=== PATIENT | female | born 2005 | race Two or more races ===

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

== ENCOUNTER 2024-09-24 01:44 | Emergency (ER) | payer MEDICAID ==
[~2024-09-24] VITALS: Ht 160 cm; Wt 54.8 kg
[2024-09-24 02:35] LABS: Vaginal Bacteria Moderate; Vaginal Clue Cells Few
[2024-09-24 02:36] LABS: Vaginal Epithelial Cells Moderate
[2024-09-24 02:37] LABS: Vaginal Trichomonas Not Present
[2024-09-24] MEDS ORDERED: DOCU-94 PO (02:39)
--- NOTE | 2024-09-24 02:40 | ED.PDOC ---
NUCLEAR MEDICINE CHIEF TECHNOLOGIST HPI Comments This patient is an otherwise healthy 27-year-old female who arrives to the ED today with complaints of vaginal discomfort with possible discharge as well as some rectal bleeding for the past few days. Patient states that the vaginal discomfort concerns started a few days ago and has been consistent. Patient states she has had some discharge that has not been malodorous. Patient states the rectal bleeding event has occurred twice and was noted when she was wiping. Patient denies any fever nausea or vomiting. Patient denies any history of hemorrhoids for vaginal concerns. Vital signs were stable on arrival. Chief Complaint: Vaginal Discharge Time Seen by MD: 01:55 Reviewed Notes: Nurses Notes Allergies: Coded Allergies: No Known Drug Allergy (Verified Allergy, Unknown, 11/28/19) Home Meds Active Scripts Docusate Sodium (Colace) 100 Mg Cap, 1 CAP PO BIDP PRN, #30 CAP Prov:GALINA STEPHEN PAC 09/24/24 Information Source: Patient Mode of Arrival: Ambulatory Timing: Days Severity: Moderate Vaginal Discharge: White Onset Of Mass/Bleeding: Spontaneous Sexual Activity: Sexually Active Past Medical History PAST MEDICAL HISTORY: Denies Surgical History: Denies all surgeries VICE PRESIDENT PRECISION MARKET INSIGHTS History: No Pertinent VICE PRESIDENT PRECISION MARKET INSIGHTS History Family History Family History: Reviewed,noncontributory to illness Social History Smoker: Cigarettes Alcohol: Denies ETOH Use Drugs: Unknown Lives In: Home Constitutional: denies: chills, diaphoresis, fatigue, fever, malaise, sweats, weakness, others EENTM: denies: blurred vision, double vision, ear bleeding, ear discharge, ear drainage, ear pain, ear ringing, eye pain, eye redness, hearing loss, mouth pain, mouth swelling, nasal discharge, nose bleeding, nose congestion, nose pain, photophobia, tearing, throat pain, throat swelling, voice changes, others Respiratory: denies: cough, hemoptysis, orthopnea, SOB at rest, shortness of breath, SOB with excertion, stridor, wheezing, others Cardiovascular: denies: chest pain, dizzy spells, diaphoresis, Dyspnea on exertion, edema, irregular heart beat, left arm pain, lightheadedness, palpitations, PND, syncope, others Gastrointestinal: reports: rectal bleeding; denies: abdomen distended, abdominal pain, blood streaked bowels, constipated, diarrhea, dysphagia, difficulty swallowing, hematemesis, melena, nausea, poor appetite, poor fluid intake, rectal pain, vomiting, others Genitourinary: reports: vagina discharge; denies: abnormal vagina bleeding, burning, dyspareunia, dysuria, flank pain, frequency, hematuria, incontinence, pain, , urgency, others Neurological: denies: dizziness, fainting, headache, left sided numbness, left sided weakness, numbness, paresthesia, pre-existing deficit, right sided numbness, right sided weakness, seizure, speech problems, tingling, tremors, weakness, others Musculoskeletal: denies: back pain, gout, joint pain, joint swelling, muscle pain, muscle stiffness, neck pain, others Allergic/Immunocompromised: denies: Difficulty Healing, Frequent Infections, Hives, Itching, others Hematologic/Lymphatic: denies: anemia, blood clots, easy bleeding, easy bruising, swollen glands, others Endocrine: denies: excessive hunger, excessive sweating, excessive thirst, excessive urination, flushing, intolerance to cold, intolerance to heat, unexplained weight gain, unexplained weight loss, others Psychiatric: denies: anxiety, bipolar disorder, depression, hopeless, panic disorder, schizophrenia, sleepless, suicidal, others Physical Exam General Appearance: Mild Distress (Mild distress due to some vaginal discomfort.), Normal HEENT: Normal ENT Inspection, Pharynx Normal, TMs Normal Neck: Full Range of Motion, Non-Tender, Normal, Normal Inspection Respiratory: Chest Non-Tender, Lungs Clear, No Accessory Muscle Use, No Respiratory Distress, Normal Breath Sounds Cardiovascular: No Edema, No JVD, No Murmur, No Gallop, Normal Peripheral Pulses, Regular Rate/Rhythm Breast Exam: Deferred Gastrointestinal: No Organomegaly, Non Tender, No Pulsatile Mass, Normal Bowel Sounds, Soft Genitalia: Other (Vaginal and rectal exam were unremarkable. No signs of external trauma. No vaginal discharge appreciated. No malodorous concerns. The small area of sensitivity at the superior aspect of the rectum, but no active bleed noted.) Pelvic: Deferred Rectal: Deferred Extremities: No calf tenderness, Normal capillary refill, Normal inspection, Normal range of motion, Non-tender, No pedal edema Neurologic: Alert, No Motor Deficits, Normal Affect, Normal Mood, No Sensory Deficits Cerebellar Function: Normal Reflexes: Normal Skin: Dry, Normal Color, Warm Lymphatic: No Adenopathy Was a procedure done? Was a procedure done?: No Differential Diagnosis (VICE PRESIDENT [employer] INSIGHTS) Vaginal Bleeding: Other (Bacterial vaginosis, trichomoniasis, vaginal yeast infection, UTI, hemorrhoids, rectal trauma) X-Ray, Labs, Meds, VS Lab Test 09/24/24 02:16 Range/Units Vaginal WBC (Wet Prep) None seen Vaginal RBC (Wet Prep) None seen Vaginal Epithelial Cells (Wet Prep) Moderate Vaginal Bacteria (Wet Prep) Moderate Vaginal Trichomonas (Wet Prep) Not present Vaginal Yeast (Wet Prep) Few Vaginal Clue Cells (Wet Prep) Few X-Ray, Labs, Meds, VS Comment Urinalysis has not been returned at time of this note. Wet mount confirmed a bacterial vaginosis. Patient care will be transferred to Dr. Bruno for review of urinalysis when returned. Once evaluated, she will respond accordingly. Advised patient utilize antibiotics as directed until completion as well as additional medication as directed. Patient should have stool the consistency of frozen yogurt. Time of 1ST Reevaluation: 02:37 Reevaluation 1ST: Improved Consultation: PCP, wealth management director Patient Education/Counseling: Diagnosis, Treatment Family Education/Counseling: Diagnosis, Treatment Departure 1 Departure Time of Disposition: 02:38 Impression: Primary Impression: Bacterial vaginosis Additional Impression: Rectal bleed Disposition: 30 STILL A PATIENT Condition: Stable Additional Instructions: Advised patient utilize medication as directed until a healthy bowel pattern is establish. Advised patient that is stool consistency she will be that a frozen yogurt. e-Prescriptions Clindamycin Phosphate (Clindamycin Phosphate) 2 % Cre 1 APPLIC VG QPM for 7 Days, #40 GRAMS Prov: GALINA STEPHEN PAC 09/24/24 Metronidazole (Flagyl) 500 Mg Tab 1 TAB PO BID for 7 Days, #14 TAB Prov: GALINA STEPHEN PAC 09/24/24 Docusate Sodium (Colace) 100 Mg Cap 1 CAP PO BIDP PRN, #30 CAP Prov: GALINA STEPHEN 09/24/24 Discharged With: Self, Friend Critical Care Note Critical Care Time?: No Stability Stability form required: No Heart Score Heart Score: Heart Score Response (Comments) Value History N/A 0 EKG N/A 0 Age N/A 0 Risk Factors N/A 0 Troponin N/A 0 Total 0 GALINA STEPHEN [facility] Sep 24, 2024 02:40
[2024-09-24 02:43] LABS: Urine Bacteria None Seen /hpf (None Seen)
[2024-09-24] MEDS ORDERED: CLIN2CRE7 VG (02:43)
[2024-09-24] MEDS ORDERED: METR-344 PO (02:43)
[2024-09-24 02:46] LABS: Urine Blood Negative /uL (Negative); Urine Clarity Clear (Clear); Urine Color Light-Yellow (Yellow); Urine Mucus FEW (None Seen); Urine Protein, UAD Negative (Negative); Urine Specific Gravity 1.021 (1.001-1.035); Urine Squamous Epithelial Cell FEW /hpf (<5); Urine Urobilinogen Normal (Negative); Urine WBC 4 /HPF (0-5)
[2024-09-24 04:00] VITALS: BP 112/76; PULSE 62; RESP 16; TEMP 97.6; O2SAT 100
== END 2024-09-24 04:34 | disposition home or self-care (01) ==
LOC: ER 01:44
DX: N76.0 Acute vaginitis (principal); B96.89 Other specified bacterial agents as the cause of diseases classified elsewhere; K62.5 Hemorrhage of anus and rectum; F17.210 Nicotine dependence, cigarettes, uncomplicated
CPT/HCPCS: 81001; 87210

== ENCOUNTER 2025-03-15 19:37 | Emergency (ER) | payer MEDICAID ==
[~2025-03-15] VITALS: Ht 162.6 cm; Wt 58.0 kg
[~2025-03-15 19:37] MED LIST: CLIN2CRE7 VG; DOCU-94 PO; METR-344 PO
[2025-03-15 20:54] LABS: Hematocrit 32.0 % (36.0-46.0); Hemoglobin 10.9 g/dL (12.2-16.2); Mean Corpuscular Hemoglobin 29.0 pg (28.0-32.0); Mean Corpuscular Volume 84.8 fL (80.0-100.0); Nucleated Red Blood Cells % 0.0 %
[2025-03-15 21:31] LABS: Urine Protein, UAD TRACE (Negative)
[2025-03-15 23:54] VITALS: BP 101/69; PULSE 78; RESP 18; TEMP 98.5; O2SAT 98
[2025-03-16] MEDS ORDERED: METR0.7511 VG (00:16)
[2025-03-16] MEDS ORDERED: CEPH500C PO (00:16)
--- NOTE | 2025-03-16 00:16 | ED.PDOC ---
SECURITY AND COMPLIANCE ANALYST HPI Comments 19 year old female presents to ER with vaginal complaint x 6 months. Patient states she's been experiencing intermittent vaginal burning/itching x 6 months. Notes she was seen in ER here at onset of symptoms, diagnosed with BV at that time and never finished her medications as directed. Patient denies any worsening symptoms since last ER visit and presents to ER ambulatory on arrival, in no distress with vitals stable. Patient also reports she is currently 5 months , and has been following up with his OBGYN as directed. Denies fever, body aches, chills, n/v, abdominal/pelvic pain, vaginal bleeding/discharge, rash/skin changes, back/flank pain, changes in urination or any further symptoms/complaints Chief Complaint: Vaginal Discharge Time Seen by MD: 20:31 Primary Care Provider: UNKNOWN Reviewed Notes: Nurses Notes, Medications, Allergies Allergies: Coded Allergies: No Known Drug Allergy (Verified Allergy, Unknown, 11/28/19) Home Meds Active Scripts Metronidazole Vaginal (Metronidazole Vaginal) 0.75 % Gel, 1 APPLIC VG DAILY for 5 Days, #5 APPLIC Prov:CAREY STEPHEN 03/16/25 Cephalexin Monohydrate (Cephalexin) 500 Mg Cap, 1 CAP PO QID for 7 Days, #28 CAP 0 Refills Prov:CAREY STEPHEN 03/16/25 Clindamycin Phosphate (Clindamycin Phosphate) 2 % Cre, 1 APPLIC VG QPM for 7 Days, #40 GRAMS Prov:GALINA STEPHEN PAC 09/24/24 Metronidazole (Flagyl) 500 Mg Tab, 1 TAB PO BID for 7 Days, #14 TAB Prov:GALINA STEPHEN PAC 09/24/24 Docusate Sodium (Colace) 100 Mg Cap, 1 CAP PO BIDP PRN, #30 CAP Prov:GALINA STEPHEN PAC 09/24/24 Information Source: Patient Mode of Arrival: Ambulatory Past Medical History PAST MEDICAL HISTORY: Denies Surgical History: Denies all surgeries ACQUISITION ANALYST History: No Pertinent ACQUISITION ANALYST History Family History Family History: Unknown Social History Smoker: Non-Smoker Alcohol: Denies ETOH Use Drugs: Denies Drug Use Lives In: Home Constitutional: denies: chills, diaphoresis, fatigue, fever, malaise, sweats, weakness, others EENTM: denies: blurred vision, double vision, ear bleeding, ear discharge, ear drainage, ear pain, ear ringing, eye pain, eye redness, hearing loss, mouth pain, mouth swelling, nasal discharge, nose bleeding, nose congestion, nose pain, photophobia, tearing, throat pain, throat swelling, voice changes, others Respiratory: denies: cough, hemoptysis, orthopnea, SOB at rest, shortness of breath, SOB with excertion, stridor, wheezing, others Cardiovascular: denies: chest pain, dizzy spells, diaphoresis, Dyspnea on exertion, edema, irregular heart beat, left arm pain, lightheadedness, palpitations, PND, syncope, others Gastrointestinal: denies: abdomen distended, abdominal pain, blood streaked bowels, constipated, diarrhea, dysphagia, difficulty swallowing, hematemesis, melena, nausea, poor appetite, poor fluid intake, rectal bleeding, rectal pain, vomiting, others Genitourinary: reports: others (As stated in HPI) Neurological: denies: dizziness, fainting, headache, left sided numbness, left sided weakness, numbness, paresthesia, pre-existing deficit, right sided numbness, right sided weakness, seizure, speech problems, tingling, tremors, weakness, others Musculoskeletal: denies: back pain, gout, joint pain, joint swelling, muscle pain, muscle stiffness, neck pain, others Integumetry: denies: bruises, change in color, change in hair/nails, dryness, laceration, lesions, lumps, rash, wounds, others Allergic/Immunocompromised: denies: Difficulty Healing, Frequent Infections, Hives, Itching, others Hematologic/Lymphatic: denies: anemia, blood clots, easy bleeding, easy bruising, swollen glands, others Endocrine: denies: excessive hunger, excessive sweating, excessive thirst, excessive urination, flushing, intolerance to cold, intolerance to heat, unexplained weight gain, unexplained weight loss, others Psychiatric: denies: anxiety, bipolar disorder, depression, hopeless, panic disorder, schizophrenia, sleepless, suicidal, others Physical Exam General Appearance: No Apparent Distress HEENT: PERRL/EOMI, Pharynx Normal Neck: Full Range of Motion, Non-Tender, Normal Respiratory: Chest Non-Tender, Lungs Clear, No Accessory Muscle Use, No Respiratory Distress, Normal Breath Sounds Cardiovascular: No Murmur, No Gallop, Regular Rate/Rhythm Breast Exam: Deferred Gastrointestinal: Non Tender, No Pulsatile Mass, Soft Genitalia: Deferred Pelvic: Deferred Rectal: Deferred Extremities: Normal capillary refill, Normal range of motion Neurologic: Alert, No Motor Deficits, Normal Affect, Normal Mood, No Sensory Deficits Cerebellar Function: Normal Reflexes: Normal Skin: Dry, Normal Color, Warm Peripheral Pulses: 2+ Radial (R), 2+ Radial (L), 2+ Brachial (R), 2+ Brachial (L) Lymphatic: No Adenopathy Was a procedure done? Was a procedure done?: No Sedation Sedation?: No Differential Diagnosis (ACQUISITION ANALYST) Vaginal Bleeding: - Incomplete, Placenta Previa Vaginal Discharge: Physiologic Discharge, Vaginitis - Candidal, Other (STD) X-Ray, Labs, Meds, VS Vital Signs Date Time Temp Pulse Resp B/P (MAP) Pulse Ox O2 Delivery O2 Flow Rate FiO2 03/15/25 23:54 98.5 78 18 101/69 (80) 98 98.5 03/15/25 19:40 98.1 73 18 97/71 100 98.1 Lab Test 03/15/25 20:40 03/15/25 20:20 Range/Units Urine Color Colorless Yellow Urine Clarity Turbid H Clear Urine pH 6.0 5.0-9.0 Urine Specific [place] 1.021 1.001-1.035 Urine Protein Trace H Negative Urine Ketones Negative Negative Urine Blood Negative Negative /uL Urine Nitrite Negative Negative Urine Bilirubin Negative Negative Urine Urobilinogen Normal Negative mg/dL Urine Leukocyte Esterase 3+ Negative /uL Urine RBC 1 0 - 4 /hpf Urine Microscopic WBC 57 H 0-5 /HPF Urine Squamous Epithelial Cells Many <5 /hpf Urine Bacteria Few H None Seen /hpf Urine Mucus Few None Seen Urine Sperm Present None Seen /hpf Urine Glucose Normal Normal mg/dL Chlamydia trachomatis ([place]OURTNEY) Pending Neisseria gonorrhoeae ([place]RTNEY) Pending White Blood Count 8.0 4.4-10.8 10^3/uL Red Blood Count 3.77 L 4.0-5.20 10^6/uL Hemoglobin 10.9 L 12.2-16.2 g/dL Hematocrit 32.0 L 36.0-46.0 % Mean Corpuscular Volume 84.8 80.0-100.0 fL Mean Corpuscular Hemoglobin 29.0 28.0-32.0 pg Mean Corpuscular Hemoglobin Concent 34.2 32.0-36.0 g/dL Red Cell Distribution Width 14.3 11.8-14.3 % Platelet Count 238 140-450 10^3/uL Mean Platelet Volume 9.1 6.9-10.8 fL Neutrophils (%) (Auto) 76.7 37.0-80.0 % Lymphocytes (%) (Auto) 16.6 10.0-50.0 % Monocytes (%) (Auto) 6.3 0.0-12.0 % Eosinophils (%) (Auto) 0.2 0.0-7.0 % Basophils (%) (Auto) 0.2 0.0-2.0 % Neutrophils # (Auto) 6.2 1.6-8.6 10 ^3/uL Lymphocytes # (Auto) 1.3 0.4-5.4 10 ^3/uL Monocytes # (Auto) 0.5 0-1.3 10 ^3/uL Eosinophils # (Auto) 0 0-0.8 10 ^3/uL Basophils # (Auto) 0 0-0.2 10 ^3/uL Nucleated Red Blood Cells 0.0 % CBC reviewed without any significant abnormalities Urinalysis reviewed-urine leukocyte esterase 3+, urine blood negative, urine nitrites negative Urine culture ordered Chlamydia/gonorrhea amplification test ordered Safe sex practices discussed and advised Advised on importance of taking medications as prescribed Patient well appearing, vitals stable and asymptomatic prior to discharge Advised to drink plenty of fluids Advised to follow up with PCP and OBGYN in 1-2 days Patient verbalized understanding and agreeable with current plan of care Advised to return to ER immediately if symptoms worsen Time of 1ST Reevaluation: 23:40 Reevaluation 1ST: N/A Patient Education/Counseling: Diagnosis, Treatment, Prognosis, Need For Follow Up Family Education/Counseling: No Family Present Departure 1 Departure Time of Disposition: 00:12 Impression: Primary Impression: UTI (urinary tract infection) Qualified Codes: N30.01 - Acute cystitis with hematuria Additional Impressions: Bacterial vaginosis Second trimester Disposition: HOME / SELF CARE / HOMELESS Condition: Stable e-Prescriptions Metronidazole Vaginal (Metronidazole Vaginal) 0.75 % Gel 1 APPLIC VG DAILY for 5 Days, #5 APPLIC Prov: CAREY STEPHEN 03/16/25 Cephalexin Monohydrate (Cephalexin) 500 Mg Cap 1 CAP PO QID for 7 Days, #28 CAP 0 Refills Prov: CAREY STEPHEN 03/16/25 Discharged With: Self Critical Care Note Critical Care Time?: No Stability Stability form required: No Heart Score Heart Score: Heart Score Response (Comments) Value History N/A 0 EKG N/A 0 Age N/A 0 Risk Factors N/A 0 Troponin N/A 0 Total 0 CAREY STEPHEN Mar 16, 2025 00:16
[2025-03-18 05:08] LABS: Chlamydia Trachomatis, NAA Negative (Negative); Neisseria gonorrhoeae, NAA Negative (Negative)
== END 2025-03-16 00:25 | disposition home or self-care (01) ==
LOC: ER 19:37
DX: O23.12 Infections of bladder in pregnancy, second trimester (principal); N39.0 Urinary tract infection, site not specified; B96.89 Other specified bacterial agents as the cause of diseases classified elsewhere; Z3A.21 21 weeks gestation of pregnancy
CPT/HCPCS: 36415; 81001; 85025; 87086; 87088; 87186